=== PATIENT | male | born 1990 | race African-American/Black ===

== ENCOUNTER 2016-08-09 18:54 | Emergency (ER) | payer OTHER ==
[2016-08-09 19:03] VITALS: BP 128/76; PULSE 94; TEMP 98.4; BMI 22.3
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
== END 2016-08-09 22:30 | disposition home or self-care (01) ==
LOC: JERFT 18:54
PROC: 0KQ10ZZ Repair Facial Muscle, Open Approach (ICD-10-PCS; principal; 2016-08-09)
DX: S01.511A Laceration without foreign body of lip, initial encounter (principal); S09.12XA Laceration of muscle and tendon of head, initial encounter; Y04.0XXA Assault by unarmed brawl or fight, initial encounter; Y93.89 Activity, other specified; Y92.89 Other specified places as the place of occurrence of the external cause
CPT/HCPCS: 13151; 99281-25

== ENCOUNTER 2016-08-14 14:19 | Emergency (ER) | payer OTHER ==
[2016-08-14 14:25] VITALS: BP 124/61; PULSE 90; TEMP 98.2; BMI 17.4
--- NOTE | 2016-08-14 15:30 | PDOC ---
Suture Removal/Wound Check HPI - History of Present Illness Chief Complaint: Suture/Staple Removal(Here) Stated Complaint: SUTURE REMOVAL Time Seen by Provider: 08/14/16 14:50 History Source: Yes: Patient Exam Limitations: Yes: No Limitations Treated at: [facility] [place] [facility] Date of Last ED visit: 08/09/16 - Previous ED Treatment Type of procedure performed on last visit: Yes: Laceration Repair Past History - Past Medical History Allergies/Adverse Reactions: Allergies No Known Allergies Allergy (Verified 08/14/16 14:22) Home Medications: Ambulatory Orders NK [No Known Home Medication] 08/09/16 - Immunization History Tetanus Status: Less than 5 years - Social History Smoking Status: Never smoked Number of Ciarettes Per Day: 2 Suture Removal/Wound Check PE - Physical Exam Laceration/Wound Check Symptoms: reports: None Comments: 08/14/16 15:[address], no swelling or signs of infection, healing well, patient able to move his mouth without any difficulty and speak normally Otherwise patient has no complaints and appears in no distress, with normal behavior Current Severity Level: None Maximum Severity Level: None Pain Localization: None Procedures - Additional Procedures Progress: 08/14/16 15:42 sutures removed without difficulty, see instructions *DC/Admit/Observation/Transfer Diagnosis at time of Disposition: Visit for suture removal - Discharge Dispostion Disposition: HOME Condition at time of disposition: Stable Admit: No - Referrals Referrals: Iraj Pruitt [Primary Care Provider] - - Patient Instructions Printed Discharge Instructions: DI for Suture Removal Additional Instructions: Into you to apply bacitracin twice a day until the scab is resolved Apply sunscreen to the area daily to minimize scarring, for the next 3 months
== END 2016-08-14 15:32 | disposition home or self-care (01) ==
LOC: JERFT 14:19
DX: Z48.02 Encounter for removal of sutures (principal)
CPT/HCPCS: 99281-25

== ENCOUNTER 2020-02-08 08:14 | Emergency (ER) | payer OTHER ==
[2020-02-08 08:26] VITALS: TEMP 98.8; BMI 23.7
--- OUTSIDE RECORDS SUMMARY | 2020-02-08 08:38 | XMS ---
:1990 [facility] Team Providers Name Role Phone Joey Dewitt MD Unavailable Unavailable Kevan Dewitt MD Unavailable Unavailable Kevan Dewitt MD Unavailable Unavailable Kevan Dewitt MD Unavailable Unavailable [place] H Unavailable Unavailable Esdras, H MD Unavailable Unavailable [place], H Unavailable Unavailable Re-disclosure Warning The records that you are about to access may contain information from federally- assisted alcohol or drug abuse programs. If such information is present, then the following federally mandated warning applies: This information has been disclosed to you from records protected by federal confidentiality rules (42 CFR part 2). The federal rules prohibit you from making any further disclosure of this information unless further disclosure is expressly permitted by the written consent of the person to whom it pertains or as otherwise permitted by 42 CFR part 2. A general authorization for the release of medical or other information is NOT sufficient for this purpose. The Federal rules restrict any use of the information to criminally investigate or prosecute any alcohol or drug abuse patient.The records that you are about to access may contain highly sensitive health information, the redisclosure of which is protected by Article 27-F of the [place] State Public Health law. If you continue you may haveaccess to information: Regarding HIV / AIDS; Provided by facilities licensed or operated by the [facility] Office of Mental Health; or Provided by the [facility] Office for People With Developmental Disabilities. If such information is present, then the following [facility] mandated warning applies: This information has been disclosed to you from confidential records which are protected by state law. State law prohibits you from making any further disclosure of this information without the specific written consent of the person to whom it pertains, or as otherwise permitted by law. Any unauthorized further disclosure in violation of state law may result in a fine or [place] health care facility sentence or both. A general authorization for the release of medical or other information is NOT sufficient authorization for further disclosure. Encounters Encounter Providers Location Date Indications Data Source(s ) Emergency Attender: Joey 11/24/2018 [facility] 02:33:00 PM EDT [facility] H [facility] 12:13:00 PM EDT Medical C enter Medications Medication Brand Start Product Dose Route Administrative Pharmacy [facility] Indications Reaction Description Data Name Date Form Instructions Instructions Source(s) Ibuprofen ibupro 1 complet [facility] 600 MG Oral fen ed Emilia Tablet 600 mg Medical ibuprofen Tablet Center 600 mg , Tablet, Ordere Ordered By: d By: Brooke Morales ns: 1 re, tablet oral FNPDir every six ection hours PRN s: 1 pain tablet oral every six hours PRN pain Amoxicillin amoxic 1 complet Will nt 875 MG / illin- ed Emilia Clavulanate pot Medical 125 MG Oral clavul Center Tablet anate amoxicillin 875 -pot mg-125 clavulanate mg 875 mg-125 Tablet mg Tablet, , Ordered By: Candida ornelas By: Vu Lowery ns: 1 McInty tablet oral re, every FNPDir twelve ection hours with s: 1 or after tablet food oral every twelve hours with or after food Ibuprofen ibupro 1 complet Saint 800 MG Oral fen ed Emilia Tablet 800 mg Medical ibuprofen Tablet Center 800 mg , Tablet, Ordere Ordered By: d By: dalia Butler, ns: 1 FNPDir tablet oral ection every eight s: 1 hours PRN tablet pain-modera oral te every eight hours PRN pain-m oderat e Clindamycin clinda 1 complet Will nt 300 MG Oral mycin ed Emilia Capsule HCl Medical clindamycin 300 mg Center HCl 300 mg Capsul Capsule, e, Ordered By: Candida ornelas By: Marilyn Grayson ns: 1 Penar, capsule FNPDir oral three ection times a day s: 1 capsul e oral three times a day Insurance Providers Payer name Policy type Policy ID Covered Covered green party's Policy P [place] / Coverage green party ID relationship to Ahmadi Inf ormation type ahmadi AFFINITY O [id number] HEALTH PLAN Problems, Conditions, and Diagnoses Code Display Name Description Problem Type Effective Data Sour ce(s) Dates F17.210 Nicotine NICOTINE Diagnosis 11/24/2018 [facility] dependence, DEPENDENCE, 02:33:[address] cigarettes, CIGARETTES, EDT uncomplicated UNCOMPLICATED K04.7 Periapical abscess PERIAPICAL ABSCESS Diagnosis 9 [facility] without sinus WITHOUT SINUS 02:33:00 [facility] EDT K08.89 Other specified OTHER SPECIFIED Diagnosis 11/24/2018 [facility] disorders of teeth DISORDERS OF TEETH 02:33:00 PM Medical Center and supporting AND SUPPORTING EDT structures STRUCTURES K13.79 Other lesions of OTHER LESIONS OF Diagnosis 10/28/2018 [facility] oral mucosa ORAL MUCOSA 12:13:[address] EDT Social History Code Duration Value Status Description Data Source(s ) Smoking 11/24/2018 03:28:00 Daily Smoker completed Daily Smoker S [facility] EDT Center Smoking 11/24/2018 02:52:00 Daily Smoker completed Daily Smoker S [facility] EDT Center Smoking 11/24/2018 02:34:00 Daily Smoker completed Daily Smoker S [facility] EDT Center Smoking 10/28/2018 12:59:00 Daily Smoker completed Daily Smoker S [facility] EDT Center Smoking 10/28/2018 12:42:00 Daily Smoker completed Daily Smoker S [facility] EDT Center Smoking 10/28/2018 12:26:00 Daily Smoker completed Daily Smoker S [facility] EDT Center Vital Signs ID Date Data Source UNK Name Value Range Interpretation Code Description Data Source(s) Body temperature 36.149648 [id number] [facility] Respiratory rate 18 /min 18 /min [facility] Oxygen saturation 100 % 100 % [facility] in Arterial blood [facility] by Pulse oximetry Heart rate 97 /min 97 /min [facility] Diastolic blood 77 mm[Hg] 77 mm[Hg] [facility] pressure Medical Center Systolic blood 150 mm[Hg] 150 mm[Hg] [facility] Body weight 86.507622 kg 86.684620 kg [facility] Body temperature 36.709387 36.814745 [facility] Respiratory rate 17 /min 17 /min [facility] Oxygen saturation 99 % 99 % [facility] in Arterial blood Medical Center by Pulse oximetry Heart rate 71 /min 71 /min [facility] Body height 180.835285 180.564644 cm [facility] Center Diastolic blood 71 mm[Hg] 71 mm[Hg] [facility] pressure Medical Center Systolic blood 128 mm[Hg] 128 mm[Hg] [facility] Body mass index 26.4 kg/m2 26.4 kg/m2 [facility] (BMI) [Ratio] [facility] Patient Treatment Plan of Care Planned Activity Planned Date Details Description Data Source (s) Ibuprofen 600 MG Oral [facility] Amoxicillin 875 MG / [facility] Clavulanate 125 MG Oral Cent er Tablet Ibuprofen 800 MG Oral [facility] Tablet [place] Clindamycin 300 MG Oral [facility] Capsule [place]
[2020-02-08] MEDS ORDERED: ONDANSETRON 4 MG/2 ML VIAL IVPUSH ONE (09:03)
[2020-02-08] MEDS ORDERED: ACETAMINOPHEN 1000 MG/100 ML VIAL (NON FORMULARY) IVPB ONE (09:03)
[2020-02-08] MEDS ORDERED: SODIUM CHLORIDE 1,000 ML IV STA (09:03)
[2020-02-08] MEDS ORDERED: FAMOTIDINE 20 MG/50 ML IVPB 20 MG/50 ML MG IVPB ONE (09:04)
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
[2020-02-08 09:27] LABS: BASO % 0.7 % (0-2.0); EOS % 0.2 % (0-4.5); HEMATOCRIT 45.5 % (35.4-49); HEMOGLOBIN 15.3 GM/dL (11.7-16.9); LYMPH % 14.8 % (8-40); MCH 28.8 pg (25.7-33.7); MCHC 33.7 g/dl (32.0-35.9); MEAN CELL VOLUME 85.6 fl (80-96); MEAN PLT VOLUME 8.5 fl (7.5-11.1); MONO % 7.7 % (3.8-10.2); NEUT % 76.6 % (42.8-82.8); PLATELET COUNT 251 K/MM3 (134-434); RBC 5.31 M/mm3 (4.00-5.60); RDW 14.2 % (11.9-15.9); WHITE BLOOD COUNT 9.4 K/mm3 (4.0-10.0)
[2020-02-08 09:34] LABS: INR 1.03 (0.83-1.09); PROTHROMBIN TIME (PATIENT) 12.2 SEC (9.7-13.0)
[2020-02-08 09:36] LABS: ACTIVATED PTT 32.3 SECONDS (25.2-36.5)
[2020-02-08 09:49] LABS: ALBUMIN 4.2 g/dl (3.4-5.0); BILIRUBIN,TOTAL 0.6 mg/dL (0.2-1); BLOOD UREA NITROGEN 5.5 mg/dL (7-18); CALCIUM 9.7 mg/dL (8.5-10.1); POTASSIUM 3.8 mmol/L (3.5-5.1); TOT PROT 8.3 g/dl (6.4-8.2)
[2020-02-08] MEDS ORDERED: METOCLOPRAMIDE HCL INJECTION 10 MG/2 ML VIAL IVPUSH ONE (10:14)
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
[2020-02-08] MEDS ORDERED: MAG HYDROX/AL HYDROX/SIMETH 30 ML UNIT-DOSE CUP PO ONE (11:15)
[2020-02-08] MEDS ORDERED: LIDOCAINE VISCOUS 2% ORAL/TOP 20 ML UNIT-DOSE CUP MM ONE (11:16)
[2020-02-08] MEDS ORDERED: HALOPERIDOL LACTATE 5 MG/ML IV ONE (12:00)
[2020-02-08 13:47] VITALS: BP 143/86; PULSE 71
--- NOTE | 2020-02-08 19:53 | EKG ---
Test Reason : Blood Pressure : / mmHG Vent. Rate : 064 BPM Atrial Rate : 064 BPM P-R Int : 148 ms QRS Dur : 086 ms QT Int : 410 ms P-R-T Axes : 002 018 012 degrees QTc Int : 422 ms NORMAL SINUS RHYTHM NORMAL ECG NO PREVIOUS ECGS AVAILABLE Confirmed by DIANA FENTON MD ([id number]) on 02/08/2020 7:52:28 PM Referred By: Confirmed By:DIANA FENTON MD
== END 2020-02-08 13:52 | disposition home or self-care (01) ==
LOC: JER 08:14
PROC: 3E0333Z Introduction of Anti-inflammatory into Peripheral Vein, Percutaneous Approach (ICD-10-PCS; principal; 2020-02-08)
PROC: 3E033GC Introduction of Other Therapeutic Substance into Peripheral Vein, Percutaneous Approach (ICD-10-PCS; 2020-02-08)
PROC: 3E0337Z Introduction of Electrolytic and Water Balance Substance into Peripheral Vein, Percutaneous Approach (ICD-10-PCS; 2020-02-08)
DX: R11.14 Bilious vomiting (principal)
CPT/HCPCS: 36415; 71045-TC-FY; 80053; 83690; 85025; 85610; 85730; 93005; 93010; 99285-25; J0131

== ENCOUNTER 2021-07-12 11:29 | Emergency (ER) | payer OTHER ==
[2021-07-12 11:48] VITALS: BP 163/97; PULSE 89; TEMP 97.4; BMI 25.7
[2021-07-12] MEDS ORDERED: FAMOTIDINE 20 MG/50 ML IVPB 20 MG/50 ML MG IVPB ONE ×2 (12:21→12:24)
[2021-07-12] MEDS ORDERED: SODIUM CHLORIDE 1,000 ML IV STA (12:21)
[2021-07-12] MEDS ORDERED: ONDANSETRON 4 MG/2 ML VIAL IVPUSH ONE (12:21)
[2021-07-12] MEDS ORDERED: ONDANSETRON 4 MG/2 ML VIAL ONE (12:24)
[2021-07-12 12:52] LABS: BASO % 0.3 % (0-2.0); EOS % 0.1 % (0-4.5); HEMATOCRIT 44.3 % (35.4-49); LYMPH % 4.3 % (8-40); MCH 28.6 pg (25.7-33.7); MCHC 33.9 g/dl (32.0-35.9); MEAN CELL VOLUME 84.3 fl (80-96); MEAN PLT VOLUME 7.6 fl (7.5-11.1); MONO % 5.7 % (3.8-10.2); NEUT % 89.6 % (42.8-82.8); PLATELET COUNT 275 10^3/uL (134-434); RBC 5.26 M/mm3 (4.00-5.60); RDW 13.4 % (11.9-15.9); WHITE BLOOD COUNT 12.1 K/mm3 (4.0-10.0)
[2021-07-12 13:14] LABS: CALCIUM 9.9 mg/dL (8.5-10.1)
[2021-07-12 13:18] LABS: CREATININE 1.1 mg/dL (0.55-1.3)
[2021-07-12 13:19] LABS: BILIRUBIN,TOTAL 0.4 mg/dL (0.2-1); TOT PROT 8.3 g/dl (6.4-8.2)
[2021-07-12] MEDS ORDERED: HALOPERIDOL LACTATE 5 MG/ML IM ONE (13:26)
[2021-07-12] MEDS ORDERED: HALOPERIDOL LACTATE 5 MG/ML ONE (13:37)
== END 2021-07-12 15:33 | disposition home or self-care (01) ==
LOC: JER 11:29
PROC: 3E033GC Introduction of Other Therapeutic Substance into Peripheral Vein, Percutaneous Approach (ICD-10-PCS; principal; 2021-07-12)
PROC: 3E033GC Introduction of Other Therapeutic Substance into Peripheral Vein, Percutaneous Approach (ICD-10-PCS; 2021-07-12)
PROC: 3E023NZ Introduction of Analgesics, Hypnotics, Sedatives into Muscle, Percutaneous Approach (ICD-10-PCS; 2021-07-12)
PROC: 3E0337Z Introduction of Electrolytic and Water Balance Substance into Peripheral Vein, Percutaneous Approach (ICD-10-PCS; 2021-07-12)
DX: R11.2 Nausea with vomiting, unspecified (principal)
CPT/HCPCS: 36415; 80053; 83690; 85025; 93005; 93010; 99284-25

== ENCOUNTER 2023-10-11 04:14 | Emergency (ER) | payer OTHER ==
[2023-10-11 04:31] VITALS: BP 135/89; PULSE 62; RESP 17; TEMP 98.1; BMI 23.7
[2023-10-11] MEDS ORDERED: KETOROLAC TROMETHAMINE 30 MG/1 ML VIAL ONE (05:05)
[2023-10-11] MEDS ORDERED: LIDOCAINE 5% TOPICAL PATCH ONE (05:05)
[2023-10-11] MEDS: KETOROLAC TROMETHAMINE 30 MG/1 ML VIAL IM ONE (05:14)
[2023-10-11] MEDS: LIDOCAINE 5% TOPICAL PATCH TP ONE (05:14)
[2023-10-11] MEDS ORDERED: LIDOCAINE PATCH REMOVAL MC SCH (22:00)
== END 2023-10-11 05:36 | disposition home or self-care (01) ==
LOC: JER 04:14
PROC: 3E0233Z Introduction of Anti-inflammatory into Muscle, Percutaneous Approach (ICD-10-PCS; principal; 2023-10-11)
DX: M79.10 Myalgia, unspecified site (principal); R53.1 Weakness; M54.50 Low back pain, unspecified
CPT/HCPCS: 99284-25